=== PATIENT | female | born 1970 | race Caucasian/White ===

== ENCOUNTER → 2018-03-15 | Outpatient (CLI) | payer BC ==
[~2018-03-15] MED LIST: ESOM40CA42 PO; FERR325C2 PO; IBU800 PO; LEVO25TA56 PO; LORA10TA2 PO; PER PO
--- NOTE | 2018-03-15 15:56 | RADIOLOGY IMAGING REPORT ---
[place] [facility] [place] NAME: SHAE LACY : [id number] MR: [id number] V: [id number] EXAM DATE: ORDERING PHYSICIAN: PAULINE NGO TECHNOLOGIST: Alayna Castellano PROCEDURE:BILATERAL DIGITAL SCREENING MAMMOGRAM WITH CAD ASSISTED INTERPRETATION & 3D TOMOSYNTHESIS COMPARISON:Prior mammograms 01/18/17, 12/31/15, 12/18/14, 11/21/13, 11/01/12. INDICATIONS:SCREENING FINDINGS: Dense heterogeneous fibroglandular tissue is again seen throughout the breasts. The parenchymal pattern has remained stable allowing for difference in mammographic technique & patient positioning. There is no evidence of malignant appearing mass, malignant appearing calcifications or other secondary sign of malignancy in either breast. DIAGNOSTIC CATEGORY 1--NEGATIVE. RECOMMENDATIONS: ROUTINE MAMMOGRAM AND CLINICAL EVALUATION. IMPRESSION: BIRADS 1: Negative. No significant abnormality is seen. Dictated by: Nolvia Garcia M.D. on 03/15/2018 at 11:34 Transcribed by: MADDI on 03/15/2018 at 11:46 Approved by: Noliva Garcia M.D. on 03/15/2018 at 15:55 [facility]
== END ==
LOC: MAMO 04:24
PROVIDERS: ATTEND Nurse Practitioner Family
DX: Z12.31 Encounter for screening mammogram for malignant neoplasm of breast (principal)
CPT/HCPCS: 77063; 77067